=== PATIENT | male | born 1975 | race Caucasian/White ===

== ENCOUNTER → 2024-05-17 10:16 | Outpatient (REF) | payer OTHER, SELFPAY ==
[2024-05-18 11:35] LABS: Varicella Zoster IgG (VZV) Positive
[2024-05-19 07:46] LABS: Quantiferon Mitogen minus NIL 9.98 IU/mL; Quantiferon NIL 0.02 IU/mL; Quantiferon Plus TB1 minus NIL 0.02 IU/mL (<=0.34); Quantiferon Plus TB2 minus NIL 0.02 IU/mL (<=0.34); Quantiferon TB Gold Plus Negative (Negative)
== END ==
LOC: OHS 10:16
PROVIDERS: ATTENDING PHYSICIAN Nurse Practitioner Family
DX: Z23 Encounter for immunization (principal)
CPT/HCPCS: 36415; 86480; 86787